=== PATIENT | female | born 1950 | race African-American/Black ===

== ENCOUNTER 2019-06-07 12:57 | Inpatient (IN) | payer MEDICARE, OTHER ==
[~2019-06-07] VITALS: Ht 170.2 cm; Wt 79.9 kg
[2019-06-07] MEDS ORDERED: IPRATROPIUM BROMIDE 0.5 MG/2.5 ML NEB SOLUTION NEB ONE (13:30)
[2019-06-07] MEDS ORDERED: ALBUTEROL SULFATE 5 MG/ML 20 ML NEB SOLN [BULK] NEB ONE (13:30)
[2019-06-07] MEDS ORDERED: 0.9% SODIUM CHLORIDE 10 ML SYRINGE IVP PRN ×2 (13:30→17:00)
[2019-06-07] MEDS ORDERED: MethylPREDNISolone SOD SUCC 125 MG/2 ML VIAL IVP ONE (13:30)
[2019-06-07] MEDS ORDERED: 0.9% SODIUM CHLORIDE 5 ML NEB SOLUTION NEB ONE (13:44)
[2019-06-07 13:50] LABS: HEMATOCRIT 43.5 % (36-46); HEMOGLOBIN 14.8 g/dL (12.0-16.0); MEAN CORPUSCULAR HEMOGLOBIN 33.5 pg (26.0-34.0); MEAN CORPUSCULAR VOLUME 99 fL (80-100); PLATELET COUNT (AUTO) 192 K/uL (150-450); RED BLOOD CELL COUNT(AUTO) 4.41 MIL/uL (4.00-5.20); RED CELL DISTRIBUTION WIDTH 13.2 % (11.5-14.5)
[2019-06-07 13:55] LABS: ABG A-A DIFF O2 618.1 mmHg (10-20.0); ABG BASE EXCESS -11.2 mmol/L (-2.0-3.0); ABG CARBOXYHEMOGLOBIN 1.6 % (0.0-1.5); ABG HCO3 16.4 mmol/L (22.0-26.0); ABG METHEMOGLOBIN 0.1 % (0.0-1.5); ABG OXYGEN SATURATION 88.6 % (95.0-98.0); ABG OXYHEMOGLOBIN 87.1 % (94.0-100.0); ABG PCO2 34 mmHg (35-45); ABG TOTAL HEMOGLOBIN 14.7 G/dL (12.0-18.0); SITE, BLOOD GAS LFT RADIAL; SOURCE, BLOOD GAS ARTERIAL; TEMPERATURE, FAHRENHEIT, BG 98.6 FAHREN (96.0-98.6)
[2019-06-07 13:56] LABS: O2 DEVICE,BLOOD GAS NON REBREATHER (ROOM AIR)
[2019-06-07 14:13] LABS: INFLUENZA TYPE A NEGATIVE FOR TYPE A (NEGATIVE); INFLUENZA TYPE B NEGATIVE FOR TYPE B (NEGATIVE)
[2019-06-07 14:20] LABS: D-DIMER 4.91 mg/L FEU (0.00-0.50); PROTHROMBIN TIME 10.4 SEC (9.4-11.6)
[2019-06-07] MEDS ORDERED: SODIUM CHLORIDE 0.9% 2,050 ML IV ONE (14:22)
[2019-06-07 14:23] LABS: ALANINE AMINOTRANSFERASE 25 U/L (12-78); ALBUMIN 2.2 g/dL (3.4-5.0); ALKALINE PHOSPHATASE 77 U/L (46-116); ANION GAP 22 mmol/L (8-16); ASPARTATE AMINOTRANSFERASE 93 U/L (15-37); BILIRUBIN,TOTAL 1.5 mg/dL (0.1-1.0); CARBON DIOXIDE 15 mmol/L (22-29); CHLORIDE 92 mmol/L (98-107); CREATINE KINASE, TOTAL ONLY 17 U/L (26-192); CREATININE 1.39 mg/dL (0.60-1.30); FREE T4 (FREE THYROXINE) 1.17 ng/dL (0.76-1.46); GLOMERULAR FILTR. RATE CALC 45 mL/min (>60); GLUCOSE,RANDOM 75 mg/dL (70-110); HCG,QUANTITATIVE 1 mIU/mL (0-6); SODIUM SERUM 129 mmol/L (136-145); THYROID STIMULATING HORMONE 0.36 uIU/mL (0.36-3.74); TOTAL PROTEIN, SERUM 7.2 g/dL (6.4-8.2); UREA NITROGEN, BLOOD 41 mg/dL (7-18)
[2019-06-07 14:25] LABS: BAND NEUTROPHILS % (MANUAL) 45 % (0-5); BASOPHILS % (MANUAL) 1 % (0-2); LYMPHOCYTES % (MANUAL) 26 % (22-44); MONOCYTES % (MANUAL) 4 % (2-9); SEGMENTED NEUTROPHILS % 24 % (40-70)
[2019-06-07 14:27] LABS: POTASSIUM 2.9 mmol/L (3.5-5.1)
[2019-06-07 14:29] LABS: CALCIUM, TOTAL 9.9 mg/dL (8.8-10.5)
[2019-06-07] MEDS ORDERED: POTASSIUM CHLORIDE 20 MEQ ER TABLET PO PRN (14:30)
[2019-06-07 14:39] LABS: B-TYPE NATRIURETIC PEPTIDE 2250 pg/mL (0-100)
[2019-06-07] MEDS: POTASSIUM CHL 10 MEQ/WATER 50 ML IV PRN ×3 (14:47→21:00)
[2019-06-07] MEDS ORDERED: VANCOMYCIN HCL 1 GM/D5% WATER 200 ML IV ONE (15:00)
[2019-06-07] MEDS ORDERED: SODIUM CHLORIDE 0.9% 100 ML ONE (15:12)
[2019-06-07] MEDS ORDERED: IOVERSOL 350 MG/ML 100 ML VIAL ONE (15:13)
[2019-06-07] MEDS ORDERED: MAGNESIUM SULFATE 2 GM/WATER 50 ML IV ONE (15:15)
[2019-06-07] MEDS ORDERED: PIPERACILLIN/TAZO 3.375 GM/D5W 50 ML IV ONE (16:00)
[2019-06-07] MEDS ORDERED: ETOMIDATE 2 MG/ML 10 ML VIAL IV ONE (16:28)
[2019-06-07] MEDS ORDERED: DOXYCYCLINE HYCLATE 100 MG in DEXTROSE 5%-WATER 100 ML IV ONE (16:45)
[2019-06-07] MEDS ORDERED: ONDANSETRON HCL 4 MG/2 ML VIAL IVP PRN ×2 (17:00→20:30)
[2019-06-07] MEDS ORDERED: ACETAMINOPHEN 325 MG TABLET PO PRN (17:00)
[2019-06-07] MEDS ORDERED: BISACODYL 10 MG RECTAL RECTAL SUPPOSITORY PR PRN (20:30)
[2019-06-07] MEDS ORDERED: MAGNESIUM HYDROXIDE SUSPENSION 30 ML UDCUP PO PRN (20:30)
[2019-06-07] MEDS ORDERED: HYDROCODONE/ACETAMINOPHEN 5-325 MG TABLET PO PRN (20:30)
[2019-06-07] MEDS: BENZONATATE 100 MG CAPSULE PO SCH (20:59)
[2019-06-07] MEDS: GuaiFENesin SR 600 MG ER TABLET PO SCH (21:00)
[2019-06-07] MEDS: DOCUSATE SODIUM 100 MG CAPSULE PO SCH (21:00)
[2019-06-07] MEDS: ZOLPIDEM TARTRATE 5 MG TABLET PO PRN (21:00)
[2019-06-07 22:50] VITALS: BP 121/63
[2019-06-07] MEDS: MORPHINE SULFATE 2 MG/ML SYRINGE IVP PRN (22:50)
[2019-06-07 23:12] LABS: ABG A-A DIFF O2 582.6 mmHg (10-20.0); ABG BASE EXCESS -10.1 mmol/L (-2.0-3.0); ABG CARBOXYHEMOGLOBIN 0.6 % (0.0-1.5); ABG HCO3 16.4 mmol/L (22.0-26.0); ABG METHEMOGLOBIN 0.3 % (0.0-1.5); ABG OXYGEN CONTENT 18.9 mL/dL (15.0-23.0); ABG OXYGEN SATURATION 91.8 % (95.0-98.0); ABG PCO2 51 mmHg (35-45); ABG TOTAL HEMOGLOBIN 14.8 G/dL (12.0-18.0); PO2, ARTERIAL BG 77.1 mmHg (75.0-83.0); SOURCE, BLOOD GAS ARTERIAL; TEMPERATURE, FAHRENHEIT, BG 100.4 FAHREN (96.0-98.6)
[2019-06-07 23:13] LABS: ABG PH 7.177 (7.35-7.450); O2 DEVICE,BLOOD GAS BIPAP (ROOM AIR); SITE, BLOOD GAS LFT RADIAL; SPONTANEOUS VT, BG 614 ml
[2019-06-07] MEDS ORDERED: PHENYLEPHRINE 200 MG/D5%-WATER 250 ML IV PRN (23:18)
[2019-06-07] MEDS ORDERED: RAPID SEQUENCE KIT [RSI] 1 EACH KIT ONE (23:20)
[2019-06-07 23:36] LABS: CALCIUM, TOTAL 9.6 mg/dL (8.8-10.5); CREATININE 1.5 mg/dL (0.60-1.30); POTASSIUM 3.9 mmol/L (3.5-5.1)
[2019-06-07 23:40] VITALS: BP 149/71
[2019-06-08] VITALS (8 sets, daily range): BP systolic 83–135; BP diastolic 44–79
[2019-06-08] MEDS ORDERED: PIPERACILLIN SODIUM/TAZOBACTAM 2.25 GM in DEXTROSE 5%-WATER 50 ML IV ONE ×2
[2019-06-08] MEDS ORDERED: SODIUM CHLORIDE 0.9% 250 ML IV ONE
[2019-06-08] MEDS: PIPERACILLIN SODIUM/TAZOBACTAM 2.25 GM in DEXTROSE 5%-WATER 50 ML IV SCH ×5 (00:08→23:48)
[2019-06-08] MEDS: PROPOFOL 1000 MG/ISO-OSM 100 ML IV PRN ×5 (00:09→16:48)
[2019-06-08 00:18] LABS: ABG A-A DIFF O2 595.6 mmHg (10-20.0); ABG BASE EXCESS -10.1 mmol/L (-2.0-3.0); ABG CARBOXYHEMOGLOBIN 1.3 % (0.0-1.5); ABG HCO3 15.9 mmol/L (22.0-26.0); ABG METHEMOGLOBIN 0.3 % (0.0-1.5); ABG OXYGEN CONTENT 16.7 mL/dL (15.0-23.0); ABG PCO2 58 mmHg (35-45); ABG TOTAL HEMOGLOBIN 14.9 G/dL (12.0-18.0); PO2, ARTERIAL BG 57.3 mmHg (75.0-83.0); SOURCE, BLOOD GAS ARTERIAL; TEMPERATURE, FAHRENHEIT, BG 100.4 FAHREN (96.0-98.6)
[2019-06-08 00:19] LABS: ABG OXYGEN SATURATION 81.3 % (95.0-98.0); ABG PH 7.137 (7.35-7.450); O2 DEVICE,BLOOD GAS VENTILATOR (ROOM AIR); SITE, BLOOD GAS LFT RADIAL; VT, ABG 450 ml
[2019-06-08 00:20] LABS: PEEP,BG 10 cm H2O; SPONTANEOUS VT, BG 436 ml
[2019-06-08] MEDS ORDERED: FUROSEMIDE 40 MG/4 ML VIAL IVP ONE (00:30)
[2019-06-08] MEDS ORDERED: SODIUM BICARBONATE [ADULT] 8.4% 50 MEQ/50 ML SYRINGE IVP ONE ×2 (00:30→13:30)
[2019-06-08] MEDS: ACETAMINOPHEN 325 MG TABLET PO PRN ×5 (00:37→21:16)
[2019-06-08] MEDS: MethylPREDNISolone SOD SUCC 125 MG/2 ML VIAL IVP SCH ×5 (01:02→23:48)
[2019-06-08] MEDS: HEPARIN SODIUM,PORCINE 5,000 UNITS/ML VIAL SQ SCH ×4 (01:02→23:47)
[2019-06-08 01:29] LABS: ABG A-A DIFF O2 573.9 mmHg (10-20.0); ABG BASE EXCESS -3.7 mmol/L (-2.0-3.0); ABG CARBOXYHEMOGLOBIN 0.8 % (0.0-1.5); ABG HCO3 20.5 mmol/L (22.0-26.0); ABG METHEMOGLOBIN 0.3 % (0.0-1.5); ABG OXYGEN CONTENT 17.2 mL/dL (15.0-23.0); ABG OXYGEN SATURATION 88.9 % (95.0-98.0); ABG OXYHEMOGLOBIN 87.9 % (94.0-100.0); ABG PCO2 64 mmHg (35-45); ABG TOTAL HEMOGLOBIN 13.9 G/dL (12.0-18.0); PO2, ARTERIAL BG 69.8 mmHg (75.0-83.0); SOURCE, BLOOD GAS ARTERIAL
[2019-06-08 01:30] LABS: O2 DEVICE,BLOOD GAS VENTILATOR (ROOM AIR); PEEP,BG 14 cm H2O; SITE, BLOOD GAS LFT RADIAL; VT, ABG 450 ml
[2019-06-08] MEDS: NOREPINEPHRINE 4 MG/D5%-WATER 250 ML IV PRN ×3 (01:30→22:04)
[2019-06-08 01:31] LABS: SPONTANEOUS VT, BG 426 ml
[2019-06-08] MEDS: VASOPRESSIN 40 UNITS in DEXTROSE 5%-WATER 98 ML IV PRN ×2 (02:21→15:16)
[2019-06-08] MEDS: IPRATROPIUM BROMIDE 0.5 MG/2.5 ML NEB SOLUTION NEB SCH ×4 (02:23→19:56)
[2019-06-08] MEDS: ALBUTEROL SULFATE 2.5 MG/0.5 ML NEB SOLUTION NEB SCH ×4 (02:23→19:56)
[2019-06-08 04:44] LABS: APPEARANCE,URINE CLOUDY (CLEAR); BILIRUBIN,URINE NEGATIVE (NEGATIVE); GLUCOSE, URINE (UA) NEGATIVE (NEGATIVE); KETONES,URINE NEGATIVE (NEGATIVE); LEUKOCYTE ESTERASE ,URINE NEGATIVE (NEGATIVE); NITRATE,URINE NEGATIVE (NEGATIVE); OCCULT BLOOD,URINE TRACE (NEGATIVE); PROTEIN,URINE POS 1+ (NEGATIVE)
[2019-06-08 04:53] LABS: BACTERIA,URINE Few /HPF (None Seen); COARSE GRANULAR CASTS,URINE 0-2 /LPF (None Seen); RBC,URINE 0-2 /HPF (0-2); SQUAMOUS EPITHELIAL CELL,UR Rare /LPF (None Seen)
[2019-06-08] MEDS ORDERED: VANCOMYCIN HCL 1.25 GM in DEXTROSE 5%-WATER 250 ML IV SCH (08:00)
[2019-06-08] MEDS: VANCOMYCIN HCL 1 GM/D5% WATER 200 ML IV SCH (08:14)
[2019-06-08 08:41] LABS: CALCIUM, TOTAL 8.9 mg/dL (8.8-10.5); CREATININE 1.87 mg/dL (0.60-1.30)
[2019-06-08 08:52] LABS: LACTIC ACID 5.1 mmol/L (0.4-2.0)
[2019-06-08] MEDS: BENZONATATE 100 MG CAPSULE PO SCH ×3 (09:00→21:16)
[2019-06-08] MEDS: MORPHINE SULFATE 2 MG/ML SYRINGE IVP PRN (09:00)
[2019-06-08] MEDS: GuaiFENesin SR 600 MG ER TABLET PO SCH ×2 (09:00→21:16)
[2019-06-08] MEDS: PANTOPRAZOLE SODIUM 40 MG DR TABLET PO SCH (09:00)
[2019-06-08] MEDS: DOCUSATE SODIUM 100 MG CAPSULE PO SCH ×2 (09:00→21:16)
[2019-06-08 09:09] LABS: HEMATOCRIT 43.2 % (36-46); HEMOGLOBIN 14.6 g/dL (12.0-16.0); MEAN CORPUSCULAR HEMOGLOBIN 33.6 pg (26.0-34.0); MEAN CORPUSCULAR HGB CONC 33.8 G/dL (31.0-37.0); MEAN CORPUSCULAR VOLUME 99 fL (80-100); PLATELET COUNT (AUTO) 120 K/uL (150-450); RED BLOOD CELL COUNT(AUTO) 4.34 MIL/uL (4.00-5.20); RED CELL DISTRIBUTION WIDTH 13.3 % (11.5-14.5)
[2019-06-08 09:17] LABS: BAND NEUTROPHILS % (MANUAL) 50 % (0-5); LYMPHOCYTES % (MANUAL) 5 % (22-44); METAMYELOCYTES % 2 % (0-0); MONOCYTES % (MANUAL) 1 % (2-9); REACTIVE LYMPHOCYTES 2 % (0-0); SEGMENTED NEUTROPHILS % 40 % (40-70)
[2019-06-08] MEDS ORDERED: SODIUM CHLORIDE 0.9% 500 ML IV ONE (09:29)
[2019-06-08 11:00] LABS: ABG A-A DIFF O2 551.2 mmHg (10-20.0); ABG CARBOXYHEMOGLOBIN 0.5 % (0.0-1.5); ABG HCO3 18.8 mmol/L (22.0-26.0); ABG METHEMOGLOBIN 0.3 % (0.0-1.5); ABG OXYGEN CONTENT 19.4 mL/dL (15.0-23.0); ABG OXYGEN SATURATION 97.4 % (95.0-98.0); ABG OXYHEMOGLOBIN 96.6 % (94.0-100.0); ABG PCO2 50 mmHg (35-45); ABG PH 7.232 (7.35-7.450); ABG TOTAL HEMOGLOBIN 14.2 G/dL (12.0-18.0); O2 DEVICE,BLOOD GAS VENTILATOR (ROOM AIR); PO2, ARTERIAL BG 109.2 mmHg (75.0-83.0); SITE, BLOOD GAS ARTERIAL LINE; SOURCE, BLOOD GAS ARTERIAL; TEMPERATURE, FAHRENHEIT, BG 100.4 FAHREN (96.0-98.6); VT, ABG 450 ml
[2019-06-08 11:03] LABS: PEEP,BG 14 cm H2O
[2019-06-08] MEDS ORDERED: SODIUM CHLORIDE 0.9% 1,000 ML ONE ×2 (12:25→15:46)
[2019-06-08 21:12] LABS: PROTEIN,URINE RANDOM 132 mg/dL (0-11.9); SODIUM,URINE RANDOM 22 mmol/l (20-110)
[2019-06-09] VITALS (9 sets, daily range): BP systolic 94–129; BP diastolic 54–80
[2019-06-09] MEDS: ALBUTEROL SULFATE 2.5 MG/0.5 ML NEB SOLUTION NEB SCH ×4 (01:38→19:53)
[2019-06-09] MEDS: IPRATROPIUM BROMIDE 0.5 MG/2.5 ML NEB SOLUTION NEB SCH ×4 (01:38→19:53)
[2019-06-09] MEDS: PROPOFOL 1000 MG/ISO-OSM 100 ML IV PRN ×3 (02:48→21:42)
[2019-06-09] MEDS: PIPERACILLIN SODIUM/TAZOBACTAM 2.25 GM in DEXTROSE 5%-WATER 50 ML IV SCH ×4 (05:04→23:08)
[2019-06-09] MEDS: MethylPREDNISolone SOD SUCC 125 MG/2 ML VIAL IVP SCH ×4 (05:05→23:08)
[2019-06-09 05:15] LABS: HEMATOCRIT 36.8 % (36-46); HEMOGLOBIN 12.3 g/dL (12.0-16.0); MEAN CORPUSCULAR HGB CONC 33.6 G/dL (31.0-37.0); MEAN CORPUSCULAR VOLUME 99 fL (80-100); PLATELET COUNT (AUTO) 60 K/uL (150-450); RED BLOOD CELL COUNT(AUTO) 3.74 MIL/uL (4.00-5.20); RED CELL DISTRIBUTION WIDTH 13.3 % (11.5-14.5)
[2019-06-09 05:21] LABS: CALCIUM, TOTAL 7.7 mg/dL (8.8-10.5); CREATININE 1.64 mg/dL (0.60-1.30); POTASSIUM 3.4 mmol/L (3.5-5.1)
[2019-06-09 06:55] LABS: BAND NEUTROPHILS % (MANUAL) 19 % (0-5); LYMPHOCYTES % (MANUAL) 3 % (22-44); METAMYELOCYTES % 1 % (0-0); MONOCYTES % (MANUAL) 5 % (2-9); SEGMENTED NEUTROPHILS % 72 % (40-70)
[2019-06-09 06:56] LABS: WBC MORPHOLOGY TOXIC GRAN
[2019-06-09] MEDS: HEPARIN SODIUM,PORCINE 5,000 UNITS/ML VIAL SQ SCH ×3 (08:00→23:06)
[2019-06-09] MEDS: VANCOMYCIN HCL 1 GM/D5% WATER 200 ML IV SCH (08:24)
[2019-06-09] MEDS ORDERED: POTASSIUM CHLORIDE 10% 40 MEQ/30 ML LIQUID UDCUP NG ONE (08:45)
[2019-06-09] MEDS: PANTOPRAZOLE SODIUM 40 MG DR TABLET PO SCH (09:00)
[2019-06-09] MEDS: DOCUSATE SODIUM 100 MG CAPSULE PO SCH ×2 (09:00→20:41)
[2019-06-09] MEDS: GuaiFENesin SR 600 MG ER TABLET PO SCH ×2 (09:00→20:41)
[2019-06-09] MEDS: BENZONATATE 100 MG CAPSULE PO SCH ×3 (09:00→20:41)
[2019-06-09] MEDS: VASOPRESSIN 40 UNITS in DEXTROSE 5%-WATER 98 ML IV PRN (09:24)
[2019-06-09 09:50] LABS: ABG A-A DIFF O2 554.1 mmHg (10-20.0); ABG BASE EXCESS -5.4 mmol/L (-2.0-3.0); ABG CARBOXYHEMOGLOBIN 0.4 % (0.0-1.5); ABG HCO3 20.1 mmol/L (22.0-26.0); ABG METHEMOGLOBIN 0.3 % (0.0-1.5); ABG OXYGEN CONTENT 16.7 mL/dL (15.0-23.0); ABG OXYGEN SATURATION 97.5 % (95.0-98.0); ABG OXYHEMOGLOBIN 96.8 % (94.0-100.0); ABG PCO2 47 mmHg (35-45); ABG PH 7.277 (7.35-7.450); ABG TOTAL HEMOGLOBIN 12.2 G/dL (12.0-18.0); PO2, ARTERIAL BG 109.2 mmHg (75.0-83.0); SOURCE, BLOOD GAS ARTERIAL; TEMPERATURE, FAHRENHEIT, BG 100.4 FAHREN (96.0-98.6)
[2019-06-09 09:52] LABS: O2 DEVICE,BLOOD GAS VENTILATOR (ROOM AIR); PEEP,BG 14 cm H2O; SITE, BLOOD GAS LFT BRACHIAL; VT, ABG 450 ml
[2019-06-09] MEDS: ACETAMINOPHEN 325 MG TABLET PO PRN (12:05)
[2019-06-09] MEDS ORDERED: SODIUM CHLORIDE 0.9% 1,000 ML ONE (18:00)
[2019-06-09] MEDS: FentaNYL CITRATE PF 500 MCG in DEXTROSE 5%-WATER 90 ML IV PRN (20:59)
[2019-06-10] VITALS: BP 107/60
[2019-06-10] MEDS ORDERED: SODIUM CHLORIDE 0.9% 250 ML IV ONE (00:17)
[2019-06-10] MEDS: PROPOFOL 1000 MG/ISO-OSM 100 ML IV PRN ×3 (00:30→08:37)
[2019-06-10] MEDS: IPRATROPIUM BROMIDE 0.5 MG/2.5 ML NEB SOLUTION NEB SCH ×4 (01:48→20:13)
[2019-06-10] MEDS: ALBUTEROL SULFATE 2.5 MG/0.5 ML NEB SOLUTION NEB SCH ×4 (01:48→20:12)
[2019-06-10] MEDS: FentaNYL CITRATE PF 500 MCG in DEXTROSE 5%-WATER 90 ML IV PRN ×2 (02:34→18:20)
[2019-06-10 04:00] VITALS: BP 104/62
[2019-06-10] MEDS: NOREPINEPHRINE 4 MG/D5%-WATER 250 ML IV PRN (04:02)
[2019-06-10 04:54] LABS: HEMATOCRIT 33.3 % (36-46); HEMOGLOBIN 11.4 g/dL (12.0-16.0); MEAN CORPUSCULAR HGB CONC 34.3 G/dL (31.0-37.0); MEAN CORPUSCULAR VOLUME 96 fL (80-100); PLATELET COUNT (AUTO) 41 K/uL (150-450); RED BLOOD CELL COUNT(AUTO) 3.46 MIL/uL (4.00-5.20); RED CELL DISTRIBUTION WIDTH 13.2 % (11.5-14.5)
[2019-06-10] MEDS: MethylPREDNISolone SOD SUCC 125 MG/2 ML VIAL IVP SCH ×4 (05:12→23:40)
[2019-06-10] MEDS: PIPERACILLIN SODIUM/TAZOBACTAM 2.25 GM in DEXTROSE 5%-WATER 50 ML IV SCH ×2 (05:12→11:24)
[2019-06-10 05:35] LABS: CALCIUM, TOTAL 7.4 mg/dL (8.8-10.5); CREATININE 1.72 mg/dL (0.60-1.30); POTASSIUM 4.2 mmol/L (3.5-5.1); VANCOMYCIN,RANDOM 20.6 mcg/mL (25.0-50.0)
[2019-06-10 08:00] VITALS: BP 89/53
[2019-06-10] MEDS: HEPARIN SODIUM,PORCINE 5,000 UNITS/ML VIAL SQ SCH ×2 (08:00→16:00)
[2019-06-10] MEDS: DOCUSATE SODIUM 100 MG CAPSULE PO SCH ×2 (08:36→20:15)
[2019-06-10] MEDS: PANTOPRAZOLE SODIUM 40 MG DR TABLET PO SCH (08:38)
[2019-06-10] MEDS: GuaiFENesin SR 600 MG ER TABLET PO SCH ×2 (08:38→20:15)
[2019-06-10] MEDS: BENZONATATE 100 MG CAPSULE PO SCH ×3 (08:38→20:15)
[2019-06-10] MEDS ORDERED: VANCOMYCIN HCL 750 MG in DEXTROSE 5%-WATER 250 ML IV ONE (09:00)
[2019-06-10 09:05] LABS: BAND NEUTROPHILS % (MANUAL) 18 % (0-5); LYMPHOCYTES % (MANUAL) 5 % (22-44); MONOCYTES % (MANUAL) 3 % (2-9); SEGMENTED NEUTROPHILS % 74 % (40-70)
[2019-06-10 09:14] LABS: ABG A-A DIFF O2 233.9 mmHg (10-20.0); ABG BASE EXCESS -4.7 mmol/L (-2.0-3.0); ABG CARBOXYHEMOGLOBIN 0.7 % (0.0-1.5); ABG HCO3 20.5 mmol/L (22.0-26.0); ABG METHEMOGLOBIN 0.3 % (0.0-1.5); ABG OXYGEN CONTENT 16.6 mL/dL (15.0-23.0); ABG OXYGEN SATURATION 92.7 % (95.0-98.0); ABG OXYHEMOGLOBIN 91.8 % (94.0-100.0); ABG PCO2 47 mmHg (35-45); ABG PH 7.289 (7.35-7.450); ABG TOTAL HEMOGLOBIN 12.8 G/dL (12.0-18.0); PO2, ARTERIAL BG 70.1 mmHg (75.0-83.0); SOURCE, BLOOD GAS ARTERIAL; TEMPERATURE, FAHRENHEIT, BG 98.6 FAHREN (96.0-98.6)
[2019-06-10 09:15] LABS: O2 DEVICE,BLOOD GAS VENTILATOR (ROOM AIR); SITE, BLOOD GAS RT RADIAL; VT, ABG 450 ml
[2019-06-10 09:16] LABS: PEEP,BG 10 cm H2O
[2019-06-10 12:00] VITALS: BP 111/71
[2019-06-10 13:16] LABS: PHOSPHORUS 4.8 mg/dL (2.5-4.9)
[2019-06-10 13:27] LABS: MAGNESIUM 4.3 mg/dL (1.80-2.40)
[2019-06-10] MEDS: SODIUM CHLORIDE 0.9% 1,000 ML IV SCH (14:07)
[2019-06-10 16:00] VITALS: BP 115/70
[2019-06-10 16:11] LABS: ALBUMIN 1.3 g/dL (3.4-5.0); BILIRUBIN,DIRECT 0.5 mg/dL (0.00-0.20); BILIRUBIN,TOTAL 0.9 mg/dL (0.1-1.0); TOTAL PROTEIN, SERUM 5.5 g/dL (6.4-8.2)
[2019-06-10 16:33] LABS: INR 0.9 (0.9-1.1); PROTHROMBIN TIME 9.5 SEC (9.4-11.6)
[2019-06-10 17:23] LABS: D-DIMER > 35.20 mg/L FEU (0.00-0.50); FIBRINOGEN 684 mg/dL (200-400)
[2019-06-10] MEDS: CefTRIAXone SODIUM 2 GM in DEXTROSE 5%-WATER 50 ML IV SCH (18:01)
[2019-06-10 20:00] VITALS: BP 98/59
[2019-06-10] MEDS: AZITHROMYCIN 500 MG/NS 250 ML IV SCH (22:56)
[2019-06-11] VITALS: BP 96/63
[2019-06-11] MEDS: PROPOFOL 1000 MG/ISO-OSM 100 ML IV PRN ×3 (00:38→17:13)
[2019-06-11] MEDS: ALBUTEROL SULFATE 2.5 MG/0.5 ML NEB SOLUTION NEB SCH ×4 (01:55→20:03)
[2019-06-11] MEDS: IPRATROPIUM BROMIDE 0.5 MG/2.5 ML NEB SOLUTION NEB SCH ×4 (01:55→20:03)
[2019-06-11] MEDS: CefTRIAXone SODIUM 2 GM in DEXTROSE 5%-WATER 50 ML IV SCH ×2 (04:21→17:11)
[2019-06-11] MEDS: NOREPINEPHRINE 4 MG/D5%-WATER 250 ML IV PRN (04:47)
[2019-06-11 05:07] LABS: HEMATOCRIT 34.1 % (36-46); HEMOGLOBIN 11.6 g/dL (12.0-16.0); MEAN CORPUSCULAR HEMOGLOBIN 32.9 pg (26.0-34.0); MEAN CORPUSCULAR HGB CONC 34.1 G/dL (31.0-37.0); MEAN CORPUSCULAR VOLUME 97 fL (80-100); PLATELET COUNT (AUTO) 58 K/uL (150-450); RED BLOOD CELL COUNT(AUTO) 3.53 MIL/uL (4.00-5.20); RED CELL DISTRIBUTION WIDTH 13.3 % (11.5-14.5)
[2019-06-11 05:24] LABS: ALBUMIN 1.2 g/dL (3.4-5.0); BILIRUBIN,TOTAL 0.6 mg/dL (0.1-1.0); C-REACTIVE PROTEIN QUANT 12.63 mg/dL (0.00-0.30); CALCIUM, TOTAL 7.7 mg/dL (8.8-10.5); CREATININE 2.04 mg/dL (0.60-1.30); POTASSIUM 4.7 mmol/L (3.5-5.1); TOTAL PROTEIN, SERUM 5.3 g/dL (6.4-8.2)
[2019-06-11 05:47] LABS: PLATELET MORPHOLOGY COMMENT GIANT PLTS PRESENT
[2019-06-11 05:49] LABS: BAND NEUTROPHILS % (MANUAL) 9 % (0-5); LYMPHOCYTES % (MANUAL) 4 % (22-44); MONOCYTES % (MANUAL) 2 % (2-9); SEGMENTED NEUTROPHILS % 85 % (40-70)
[2019-06-11] MEDS: MethylPREDNISolone SOD SUCC 125 MG/2 ML VIAL IVP SCH ×4 (05:56→23:23)
[2019-06-11 06:12] LABS: ERYTHROCYTE SEDIMENTATION RATE 104 MM/HR (0-20)
[2019-06-11] MEDS: FentaNYL CITRATE PF 500 MCG in DEXTROSE 5%-WATER 90 ML IV PRN (06:47)
[2019-06-11 08:00] VITALS: BP 100/67
[2019-06-11] MEDS ORDERED: VANCOMYCIN HCL 750 MG in DEXTROSE 5%-WATER 250 ML IV SCH (08:00)
[2019-06-11] MEDS: DOCUSATE SODIUM 100 MG CAPSULE PO SCH ×2 (09:00→20:44)
[2019-06-11] MEDS: BENZONATATE 100 MG CAPSULE PO SCH ×3 (09:00→20:44)
[2019-06-11] MEDS: GuaiFENesin SR 600 MG ER TABLET PO SCH ×2 (09:00→20:44)
[2019-06-11] MEDS: SODIUM CHLORIDE 0.9% 1,000 ML IV SCH (09:15)
[2019-06-11] MEDS ORDERED: PANTOPRAZOLE SODIUM 40 MG/VIAL IVP SCH (09:15)
[2019-06-11] MEDS ORDERED: VANCOMYCIN HCL 1 GM/D5% WATER 200 ML IV PRN (09:30)
[2019-06-11 09:49] LABS: ABG A-A DIFF O2 211.1 mmHg (10-20.0); ABG BASE EXCESS -2.9 mmol/L (-2.0-3.0); ABG CARBOXYHEMOGLOBIN 0.3 % (0.0-1.5); ABG HCO3 22.1 mmol/L (22.0-26.0); ABG METHEMOGLOBIN 0.3 % (0.0-1.5); ABG OXYGEN CONTENT 15.8 mL/dL (15.0-23.0); ABG OXYGEN SATURATION 96.7 % (95.0-98.0); ABG OXYHEMOGLOBIN 96.1 % (94.0-100.0); ABG PCO2 44 mmHg (35-45); ABG PH 7.333 (7.35-7.450); ABG TOTAL HEMOGLOBIN 11.6 G/dL (12.0-18.0); PO2, ARTERIAL BG 95.6 mmHg (75.0-83.0); SOURCE, BLOOD GAS ARTERIAL; TEMPERATURE, FAHRENHEIT, BG 98.6 FAHREN (96.0-98.6)
[2019-06-11 09:53] LABS: SITE, BLOOD GAS LFT RADIAL
[2019-06-11 09:54] LABS: O2 DEVICE,BLOOD GAS VENTILATOR (ROOM AIR); PEEP,BG 10 cm H2O; VT, ABG 450 ml
[2019-06-11 12:00] VITALS: BP 99/59
[2019-06-11] MEDS ORDERED: CLINDAMYCIN 900 MG/D5% WATER 50 ML IV SCH (13:00)
[2019-06-11] MEDS: PANTOPRAZOLE SODIUM 80 MG in SODIUM CHLORIDE 0.9% 100 ML IV SCH ×2 (15:28→23:59)
[2019-06-11 16:00] VITALS: BP 89/56
[2019-06-11 20:00] VITALS: BP 114/67
[2019-06-11] MEDS: AZITHROMYCIN 500 MG/NS 250 ML IV SCH (23:23)
[2019-06-12] VITALS: BP 110/63
[2019-06-12] MEDS: IPRATROPIUM BROMIDE 0.5 MG/2.5 ML NEB SOLUTION NEB SCH ×4 (02:24→19:47)
[2019-06-12] MEDS: ALBUTEROL SULFATE 2.5 MG/0.5 ML NEB SOLUTION NEB SCH ×4 (02:24→19:47)
[2019-06-12] MEDS: PROPOFOL 1000 MG/ISO-OSM 100 ML IV PRN ×4 (02:33→23:40)
[2019-06-12 04:00] VITALS: BP 94/54
[2019-06-12] MEDS: CefTRIAXone SODIUM 2 GM in DEXTROSE 5%-WATER 50 ML IV SCH ×2 (04:50→17:20)
[2019-06-12] MEDS: SODIUM CHLORIDE 0.9% 1,000 ML IV SCH (05:57)
[2019-06-12 05:58] LABS: HEMATOCRIT 31.7 % (36-46); HEMOGLOBIN 10.5 g/dL (12.0-16.0); MEAN CORPUSCULAR HEMOGLOBIN 32.4 pg (26.0-34.0); MEAN CORPUSCULAR HGB CONC 33.2 G/dL (31.0-37.0); MEAN CORPUSCULAR VOLUME 98 fL (80-100); RED BLOOD CELL COUNT(AUTO) 3.25 MIL/uL (4.00-5.20); RED CELL DISTRIBUTION WIDTH 13.2 % (11.5-14.5)
[2019-06-12 06:01] LABS: CALCIUM, TOTAL 7.9 mg/dL (8.8-10.5); CREATININE 1.54 mg/dL (0.60-1.30); POTASSIUM 4.7 mmol/L (3.5-5.1)
[2019-06-12] MEDS: MethylPREDNISolone SOD SUCC 125 MG/2 ML VIAL IVP SCH ×4 (06:31→23:40)
[2019-06-12 06:57] LABS: PLATELET COUNT (AUTO) 83 K/uL (150-450)
[2019-06-12 07:00] LABS: BAND NEUTROPHILS % (MANUAL) 8 % (0-5); LYMPHOCYTES % (MANUAL) 5 % (22-44); MONOCYTES % (MANUAL) 2 % (2-9); SEGMENTED NEUTROPHILS % 85 % (40-70)
[2019-06-12 08:00] VITALS: BP 97/58
[2019-06-12] MEDS: GuaiFENesin SR 600 MG ER TABLET PO SCH ×2 (09:00→20:01)
[2019-06-12] MEDS: BENZONATATE 100 MG CAPSULE PO SCH ×3 (09:00→20:01)
[2019-06-12] MEDS: DOCUSATE SODIUM 100 MG CAPSULE PO SCH ×2 (09:00→20:01)
[2019-06-12] MEDS: FentaNYL CITRATE PF 500 MCG in DEXTROSE 5%-WATER 90 ML IV PRN ×2 (09:35→21:01)
[2019-06-12 10:09] LABS: ABG A-A DIFF O2 228.5 mmHg (10-20.0); ABG BASE EXCESS -1.4 mmol/L (-2.0-3.0); ABG CARBOXYHEMOGLOBIN 0.2 % (0.0-1.5); ABG HCO3 23.4 mmol/L (22.0-26.0); ABG METHEMOGLOBIN 0.3 % (0.0-1.5); ABG OXYGEN CONTENT 15.1 mL/dL (15.0-23.0); ABG OXYGEN SATURATION 95.9 % (95.0-98.0); ABG OXYHEMOGLOBIN 95.4 % (94.0-100.0); ABG PCO2 40 mmHg (35-45); ABG PH 7.389 (7.35-7.450); ABG TOTAL HEMOGLOBIN 11.2 G/dL (12.0-18.0); PO2, ARTERIAL BG 84.2 mmHg (75.0-83.0); SOURCE, BLOOD GAS ARTERIAL
[2019-06-12 10:13] LABS: O2 DEVICE,BLOOD GAS VENTILATOR (ROOM AIR); PEEP,BG 8 cm H2O; SITE, BLOOD GAS LFT RADIAL; SPONTANEOUS VT, BG 427 ml; VT, ABG 450 ml
[2019-06-12] MEDS: PANTOPRAZOLE SODIUM 80 MG in SODIUM CHLORIDE 0.9% 100 ML IV SCH ×2 (10:17→20:02)
[2019-06-12 12:00] VITALS: BP 98/56
[2019-06-12 16:00] VITALS: BP 112/56
[2019-06-12 20:00] VITALS: BP 127/71
[2019-06-12] MEDS: ACETAMINOPHEN 325 MG TABLET PO PRN (20:01)
[2019-06-12] MEDS: AZITHROMYCIN 500 MG/NS 250 ML IV SCH (23:41)
[2019-06-13] VITALS: BP 109/56
[2019-06-13] MEDS: SODIUM CHLORIDE 0.9% 1,000 ML IV SCH (02:01)
[2019-06-13] MEDS: IPRATROPIUM BROMIDE 0.5 MG/2.5 ML NEB SOLUTION NEB SCH ×4 (02:07→20:02)
[2019-06-13] MEDS: ALBUTEROL SULFATE 2.5 MG/0.5 ML NEB SOLUTION NEB SCH ×4 (02:07→20:02)
[2019-06-13 04:00] VITALS: BP 103/54
[2019-06-13 05:04] LABS: HEMATOCRIT 28.3 % (36-46); HEMOGLOBIN 9.6 g/dL (12.0-16.0); MEAN CORPUSCULAR VOLUME 97 fL (80-100); PLATELET COUNT (AUTO) 120 K/uL (150-450); RED BLOOD CELL COUNT(AUTO) 2.92 MIL/uL (4.00-5.20); RED CELL DISTRIBUTION WIDTH 13.1 % (11.5-14.5)
[2019-06-13 05:18] LABS: ALBUMIN 1.3 g/dL (3.4-5.0); BILIRUBIN,TOTAL 0.3 mg/dL (0.1-1.0); CALCIUM, TOTAL 7.9 mg/dL (8.8-10.5); CREATININE 1.11 mg/dL (0.60-1.30); PHOSPHORUS 3.4 mg/dL (2.5-4.9); POTASSIUM 4.8 mmol/L (3.5-5.1); TOTAL PROTEIN, SERUM 4.9 g/dL (6.4-8.2)
[2019-06-13] MEDS: MethylPREDNISolone SOD SUCC 125 MG/2 ML VIAL IVP SCH ×4 (05:41→23:29)
[2019-06-13] MEDS: CefTRIAXone SODIUM 2 GM in DEXTROSE 5%-WATER 50 ML IV SCH ×2 (05:41→16:25)
[2019-06-13] MEDS: PANTOPRAZOLE SODIUM 80 MG in SODIUM CHLORIDE 0.9% 100 ML IV SCH (05:44)
[2019-06-13] MEDS: PROPOFOL 1000 MG/ISO-OSM 100 ML IV PRN ×4 (06:49→22:55)
[2019-06-13 07:55] LABS: BAND NEUTROPHILS % (MANUAL) 10 % (0-5); CORRECTED WHITE BLOOD COUNT 23.6 K/uL (4.5-11.0); LYMPHOCYTES % (MANUAL) 5 % (22-44); MONOCYTES % (MANUAL) 1 % (2-9); REACTIVE LYMPHOCYTES 1 % (0-0); SEGMENTED NEUTROPHILS % 83 % (40-70)
[2019-06-13 08:00] VITALS: BP 109/59
[2019-06-13] MEDS: GuaiFENesin SR 600 MG ER TABLET PO SCH ×2 (08:17→20:32)
[2019-06-13] MEDS: BENZONATATE 100 MG CAPSULE PO SCH ×3 (08:17→20:32)
[2019-06-13] MEDS: DOCUSATE SODIUM 100 MG CAPSULE PO SCH ×2 (08:17→20:32)
[2019-06-13] MEDS ORDERED: DEXTROSE 50%-WATER 25 GM/50 ML SYRINGE IVP PRN (11:15)
[2019-06-13] MEDS ORDERED: DEXTROSE 5%-WATER 500 ML IV ONE (11:30)
[2019-06-13] MEDS: FentaNYL CITRATE PF 500 MCG in DEXTROSE 5%-WATER 90 ML IV PRN ×2 (11:47→20:25)
[2019-06-13 12:00] VITALS: BP 107/52
[2019-06-13 12:24] LABS: D-DIMER 32.42 mg/L FEU (0.00-0.50); PROTHROMBIN TIME 10.6 SEC (9.4-11.6)
[2019-06-13 14:15] LABS: GLUCOSE,POINT OF CARE 199 MG/DL (70-110)
[2019-06-13 16:00] VITALS: BP 108/52
[2019-06-13] MEDS ORDERED: SODIUM CHLORIDE 0.9% 250 ML IV ONE (16:29)
[2019-06-13] MEDS: INSULIN LISPRO 100 UNITS/ML SQ PRN ×2 (17:31→23:42)
[2019-06-13 17:54] LABS: GLUCOSE,POINT OF CARE 242 MG/DL (70-110)
[2019-06-13 20:00] VITALS: BP 101/59
[2019-06-13] MEDS: PANTOPRAZOLE SODIUM 40 MG/VIAL IVP SCH (20:32)
[2019-06-13 21:23] LABS: ADAMTS13 ACTIVITY See Separate Report.
[2019-06-13] MEDS: AZITHROMYCIN 500 MG/NS 250 ML IV SCH (22:18)
[2019-06-14] VITALS: BP 113/60
[2019-06-14] MEDS: IPRATROPIUM BROMIDE 0.5 MG/2.5 ML NEB SOLUTION NEB SCH ×4 (01:50→19:21)
[2019-06-14] MEDS: ALBUTEROL SULFATE 2.5 MG/0.5 ML NEB SOLUTION NEB SCH ×4 (01:51→19:21)
[2019-06-14] MEDS: PROPOFOL 1000 MG/ISO-OSM 100 ML IV PRN ×4 (03:05→22:24)
[2019-06-14 04:00] VITALS: BP 107/55
[2019-06-14] MEDS: CefTRIAXone SODIUM 2 GM in DEXTROSE 5%-WATER 50 ML IV SCH ×2 (04:23→17:24)
[2019-06-14] MEDS: INSULIN LISPRO 100 UNITS/ML SQ PRN ×3 (05:22→23:29)
[2019-06-14] MEDS: MethylPREDNISolone SOD SUCC 125 MG/2 ML VIAL IVP SCH ×4 (05:24→23:21)
[2019-06-14 05:44] LABS: HEMATOCRIT 27.9 % (36-46); HEMOGLOBIN 9.5 g/dL (12.0-16.0); MEAN CORPUSCULAR HEMOGLOBIN 33.6 pg (26.0-34.0); MEAN CORPUSCULAR VOLUME 99 fL (80-100); PLATELET COUNT (AUTO) 216 K/uL (150-450); RED BLOOD CELL COUNT(AUTO) 2.82 MIL/uL (4.00-5.20); RED CELL DISTRIBUTION WIDTH 13.2 % (11.5-14.5)
[2019-06-14 05:45] LABS: ANION GAP 4 mmol/L (8-16); CALCIUM, TOTAL 8.4 mg/dL (8.8-10.5); CARBON DIOXIDE 31 mmol/L (22-29); CHLORIDE 117 mmol/L (98-107); CREATININE 0.85 mg/dL (0.60-1.30); GLOMERULAR FILTR. RATE CALC > 60 mL/min (>60); GLUCOSE,RANDOM 236 mg/dL (70-110); POTASSIUM 4.9 mmol/L (3.5-5.1); SODIUM SERUM 152 mmol/L (136-145); UREA NITROGEN, BLOOD 42 mg/dL (7-18)
[2019-06-14] MEDS: FentaNYL CITRATE PF 500 MCG in DEXTROSE 5%-WATER 90 ML IV PRN ×2 (06:17→20:28)
[2019-06-14 06:19] LABS: BAND NEUTROPHILS % (MANUAL) 4 % (0-5); LYMPHOCYTES % (MANUAL) 5 % (22-44); METAMYELOCYTES % 2 % (0-0); MONOCYTES % (MANUAL) 2 % (2-9); SEGMENTED NEUTROPHILS % 87 % (40-70)
[2019-06-14 06:20] LABS: PLATELET MORPHOLOGY COMMENT LARGE PLTS PRESENT
[2019-06-14 06:54] LABS: GLUCOSE,POINT OF CARE 255 MG/DL (70-110)
[2019-06-14 06:54] LABS: GLUCOSE,POINT OF CARE 225 MG/DL (70-110)
[2019-06-14 08:00] VITALS: BP 106/62
[2019-06-14] MEDS: GuaiFENesin SR 600 MG ER TABLET PO SCH ×2 (08:49→20:42)
[2019-06-14] MEDS: PANTOPRAZOLE SODIUM 40 MG/VIAL IVP SCH ×2 (08:49→20:43)
[2019-06-14] MEDS: DOCUSATE SODIUM 100 MG CAPSULE PO SCH ×2 (08:50→20:42)
[2019-06-14] MEDS: BENZONATATE 100 MG CAPSULE PO SCH ×3 (08:50→20:42)
[2019-06-14 12:00] VITALS: BP 112/58
[2019-06-14 13:27] LABS: GLUCOSE,POINT OF CARE 178 MG/DL (70-110)
[2019-06-14 16:00] VITALS: BP 126/67
[2019-06-14 17:13] LABS: ABG A-A DIFF O2 185.8 mmHg (10-20.0); ABG BASE EXCESS 3.2 mmol/L (-2.0-3.0); ABG CARBOXYHEMOGLOBIN 0.2 % (0.0-1.5); ABG HCO3 27.3 mmol/L (22.0-26.0); ABG METHEMOGLOBIN 0.3 % (0.0-1.5); ABG OXYGEN CONTENT 13.5 mL/dL (15.0-23.0); ABG OXYGEN SATURATION 91.9 % (95.0-98.0); ABG OXYHEMOGLOBIN 91.4 % (94.0-100.0); ABG PCO2 34 mmHg (35-45); ABG PH 7.505 (7.35-7.450); ABG TOTAL HEMOGLOBIN 10.5 G/dL (12.0-18.0); PO2, ARTERIAL BG 60.7 mmHg (75.0-83.0); SOURCE, BLOOD GAS ARTERIAL; TEMPERATURE, FAHRENHEIT, BG 97.7 FAHREN (96.0-98.6)
[2019-06-14 17:14] LABS: O2 DEVICE,BLOOD GAS VENTILATOR (ROOM AIR); SITE, BLOOD GAS LFT RADIAL; VENT MODE, BG SPONTANEOUS (ROOM AIR)
[2019-06-14 17:16] LABS: PEEP,BG 5 cm H2O; SPONTANEOUS VT, BG 500 ml
[2019-06-14] MEDS: LISINOPRIL 5 MG TABLET PO SCH (17:25)
[2019-06-14] MEDS ORDERED: DEXTROSE 50%-WATER 25 GM/50 ML SYRINGE IVP PRN (19:30)
[2019-06-14 20:00] VITALS: BP 94/48
[2019-06-14] MEDS: CARVEDILOL 3.125 MG TABLET PO SCH (20:42)
[2019-06-14] MEDS: AZITHROMYCIN 500 MG/NS 250 ML IV SCH (22:21)
[2019-06-15] VITALS: BP 105/44
[2019-06-15] MEDS: ALBUTEROL SULFATE 2.5 MG/0.5 ML NEB SOLUTION NEB SCH ×4 (01:14→20:03)
[2019-06-15] MEDS: IPRATROPIUM BROMIDE 0.5 MG/2.5 ML NEB SOLUTION NEB SCH ×4 (01:14→20:03)
[2019-06-15] MEDS: PROPOFOL 1000 MG/ISO-OSM 100 ML IV PRN ×5 (02:19→21:45)
[2019-06-15 04:00] VITALS: BP 108/68
[2019-06-15] MEDS: CefTRIAXone SODIUM 2 GM in DEXTROSE 5%-WATER 50 ML IV SCH ×2 (04:19→17:16)
[2019-06-15] MEDS: MethylPREDNISolone SOD SUCC 125 MG/2 ML VIAL IVP SCH ×2 (05:38→10:57)
[2019-06-15 05:41] LABS: HEMOGLOBIN 9.6 g/dL (12.0-16.0); MEAN CORPUSCULAR HEMOGLOBIN 32.6 pg (26.0-34.0); MEAN CORPUSCULAR HGB CONC 32.9 G/dL (31.0-37.0); MEAN CORPUSCULAR VOLUME 99 fL (80-100); PLATELET COUNT (AUTO) 289 K/uL (150-450); RED BLOOD CELL COUNT(AUTO) 2.93 MIL/uL (4.00-5.20); RED CELL DISTRIBUTION WIDTH 13.3 % (11.5-14.5)
[2019-06-15 05:50] LABS: ANION GAP 4 mmol/L (8-16); CALCIUM, TOTAL 8.4 mg/dL (8.8-10.5); CARBON DIOXIDE 29 mmol/L (22-29); CHLORIDE 116 mmol/L (98-107); GLOMERULAR FILTR. RATE CALC > 60 mL/min (>60); GLUCOSE,RANDOM 179 mg/dL (70-110); POTASSIUM 4.9 mmol/L (3.5-5.1); SODIUM SERUM 149 mmol/L (136-145); UREA NITROGEN, BLOOD 36 mg/dL (7-18)
[2019-06-15] MEDS: INSULIN LISPRO 100 UNITS/ML SQ PRN ×3 (06:01→18:07)
[2019-06-15 06:09] LABS: GLUCOSE,POINT OF CARE 208 MG/DL (70-110)
[2019-06-15 06:10] LABS: GLUCOSE,POINT OF CARE 172 MG/DL (70-110)
[2019-06-15] MEDS: FentaNYL CITRATE PF 500 MCG in DEXTROSE 5%-WATER 90 ML IV PRN ×3 (06:43→23:42)
[2019-06-15] MEDS: DOCUSATE SODIUM 100 MG CAPSULE PO SCH ×2 (07:27→21:00)
[2019-06-15 07:35] LABS: BAND NEUTROPHILS % (MANUAL) 12 % (0-5); LYMPHOCYTES % (MANUAL) 3 % (22-44); MONOCYTES % (MANUAL) 4 % (2-9); SEGMENTED NEUTROPHILS % 81 % (40-70)
[2019-06-15 08:00] VITALS: BP 129/74
[2019-06-15] MEDS: PANTOPRAZOLE SODIUM 40 MG/VIAL IVP SCH ×2 (09:09→21:12)
[2019-06-15] MEDS: LISINOPRIL 5 MG TABLET PO SCH (09:10)
[2019-06-15] MEDS: GuaiFENesin SR 600 MG ER TABLET PO SCH ×2 (09:10→21:13)
[2019-06-15] MEDS: CARVEDILOL 3.125 MG TABLET PO SCH ×2 (09:10→21:00)
[2019-06-15] MEDS: BENZONATATE 100 MG CAPSULE PO SCH ×3 (09:10→21:13)
[2019-06-15 09:51] LABS: GLUCOSE,POINT OF CARE 160 MG/DL (70-110)
[2019-06-15] MEDS: DEXTROSE 5%-WATER 1,000 ML IV SCH (10:56)
[2019-06-15 12:00] VITALS: BP 113/59
[2019-06-15 16:00] VITALS: BP 97/54
[2019-06-15] MEDS: MethylPREDNISolone SOD SUCC 40 MG/ML VIAL IVP SCH ×2 (17:17→23:42)
[2019-06-15 20:00] VITALS: BP 102/53
[2019-06-15 21:57] LABS: GLUCOSE,POINT OF CARE 168 MG/DL (70-110)
[2019-06-15] MEDS ORDERED: SODIUM CHLORIDE 0.9% 250 ML IV ONE (23:39)
[2019-06-15] MEDS: AZITHROMYCIN 500 MG/NS 250 ML IV SCH (23:41)
[2019-06-16] VITALS: BP 86/45
[2019-06-16] MEDS: INSULIN LISPRO 100 UNITS/ML SQ PRN ×5 (00:09→23:30)
[2019-06-16] MEDS: NOREPINEPHRINE 4 MG/D5%-WATER 250 ML IV PRN (00:32)
[2019-06-16] MEDS: PROPOFOL 1000 MG/ISO-OSM 100 ML IV PRN ×4 (02:12→23:52)
[2019-06-16] MEDS: IPRATROPIUM BROMIDE 0.5 MG/2.5 ML NEB SOLUTION NEB SCH ×4 (02:41→20:07)
[2019-06-16] MEDS: ALBUTEROL SULFATE 2.5 MG/0.5 ML NEB SOLUTION NEB SCH ×4 (02:41→20:07)
[2019-06-16 04:00] VITALS: BP 119/63
[2019-06-16 04:30] LABS: GLUCOSE,POINT OF CARE 183 MG/DL (70-110)
[2019-06-16] MEDS: CefTRIAXone SODIUM 2 GM in DEXTROSE 5%-WATER 50 ML IV SCH ×2 (05:26→17:05)
[2019-06-16 05:31] LABS: HEMOGLOBIN 9.4 g/dL (12.0-16.0); MEAN CORPUSCULAR HEMOGLOBIN 32.1 pg (26.0-34.0); MEAN CORPUSCULAR HGB CONC 32.5 G/dL (31.0-37.0); MEAN CORPUSCULAR VOLUME 99 fL (80-100); PLATELET COUNT (AUTO) 354 K/uL (150-450); RED BLOOD CELL COUNT(AUTO) 2.94 MIL/uL (4.00-5.20); RED CELL DISTRIBUTION WIDTH 13.6 % (11.5-14.5)
[2019-06-16 05:42] LABS: ALANINE AMINOTRANSFERASE 79 U/L (12-78); ALBUMIN 1.6 g/dL (3.4-5.0); ALKALINE PHOSPHATASE 104 U/L (46-116); ANION GAP 6 mmol/L (8-16); ASPARTATE AMINOTRANSFERASE 60 U/L (15-37); BILIRUBIN,TOTAL 0.2 mg/dL (0.1-1.0); CARBON DIOXIDE 28 mmol/L (22-29); CHLORIDE 117 mmol/L (98-107); GLOMERULAR FILTR. RATE CALC > 60 mL/min (>60); GLUCOSE,RANDOM 173 mg/dL (70-110); POTASSIUM 4.5 mmol/L (3.5-5.1); SODIUM SERUM 151 mmol/L (136-145); TOTAL PROTEIN, SERUM 4.9 g/dL (6.4-8.2); UREA NITROGEN, BLOOD 30 mg/dL (7-18)
[2019-06-16] MEDS: MethylPREDNISolone SOD SUCC 40 MG/ML VIAL IVP SCH ×4 (05:49→23:10)
[2019-06-16] MEDS: FentaNYL CITRATE PF 500 MCG in DEXTROSE 5%-WATER 90 ML IV PRN ×4 (05:50→23:43)
[2019-06-16] MEDS: DEXTROSE 5%-WATER 1,000 ML IV SCH ×2 (05:50→17:05)
[2019-06-16 05:54] LABS: BAND NEUTROPHILS % (MANUAL) 5 % (0-5); LYMPHOCYTES % (MANUAL) 5 % (22-44); MONOCYTES % (MANUAL) 4 % (2-9); SEGMENTED NEUTROPHILS % 86 % (40-70)
[2019-06-16 06:05] LABS: PLATELET MORPHOLOGY COMMENT GIANT PLTS PRESENT
[2019-06-16 07:43] LABS: GLUCOSE,POINT OF CARE 165 MG/DL (70-110)
[2019-06-16 08:00] VITALS: BP 112/54
[2019-06-16 08:27] LABS: GLUCOSE,POINT OF CARE 185 MG/DL (70-110)
[2019-06-16] MEDS: CARVEDILOL 3.125 MG TABLET PO SCH ×2 (09:00→20:39)
[2019-06-16] MEDS: LISINOPRIL 5 MG TABLET PO SCH (09:00)
[2019-06-16] MEDS: DOCUSATE SODIUM 100 MG CAPSULE PO SCH ×2 (09:00→20:39)
[2019-06-16] MEDS: GuaiFENesin SR 600 MG ER TABLET PO SCH ×2 (09:40→20:39)
[2019-06-16] MEDS: PANTOPRAZOLE SODIUM 40 MG/VIAL IVP SCH ×2 (09:40→20:38)
[2019-06-16] MEDS: BENZONATATE 100 MG CAPSULE PO SCH ×3 (09:41→20:39)
[2019-06-16 10:43] LABS: ABG A-A DIFF O2 161.8 mmHg (10-20.0); ABG BASE EXCESS 2.5 mmol/L (-2.0-3.0); ABG CARBOXYHEMOGLOBIN 0.4 % (0.0-1.5); ABG HCO3 26.6 mmol/L (22.0-26.0); ABG METHEMOGLOBIN 0.3 % (0.0-1.5); ABG OXYGEN SATURATION 95.9 % (95.0-98.0); ABG OXYHEMOGLOBIN 95.2 % (94.0-100.0); ABG PCO2 38 mmHg (35-45); ABG PH 7.461 (7.35-7.450); ABG TOTAL HEMOGLOBIN 9.6 G/dL (12.0-18.0); O2 DEVICE,BLOOD GAS VENTILATOR (ROOM AIR); PEEP,BG 5 cm H2O; PO2, ARTERIAL BG 80.8 mmHg (75.0-83.0); SITE, BLOOD GAS RT RADIAL; SOURCE, BLOOD GAS ARTERIAL; TEMPERATURE, FAHRENHEIT, BG 97.1 FAHREN (96.0-98.6); VT, ABG 450 ml
[2019-06-16 12:00] VITALS: BP 133/63
[2019-06-16 12:38] LABS: GLUCOSE,POINT OF CARE 191 MG/DL (70-110)
[2019-06-16 13:45] LABS: ABG A-A DIFF O2 143.4 mmHg (10-20.0); ABG BASE EXCESS 0.8 mmol/L (-2.0-3.0); ABG CARBOXYHEMOGLOBIN 0.1 % (0.0-1.5); ABG HCO3 25.3 mmol/L (22.0-26.0); ABG METHEMOGLOBIN 0.3 % (0.0-1.5); ABG OXYGEN CONTENT 12.9 mL/dL (15.0-23.0); ABG OXYGEN SATURATION 92.6 % (95.0-98.0); ABG OXYHEMOGLOBIN 92.2 % (94.0-100.0); ABG PCO2 35 mmHg (35-45); ABG PH 7.464 (7.35-7.450); ABG TOTAL HEMOGLOBIN 9.9 G/dL (12.0-18.0); O2 DEVICE,BLOOD GAS VENTILATOR (ROOM AIR); PO2, ARTERIAL BG 65.8 mmHg (75.0-83.0); SITE, BLOOD GAS RT RADIAL; SOURCE, BLOOD GAS ARTERIAL; TEMPERATURE, FAHRENHEIT, BG 97.8 FAHREN (96.0-98.6); VENT MODE, BG SPONTANEOUS (ROOM AIR)
[2019-06-16 13:46] LABS: CPAP, BG 0 cm H2O; PRESSURE SUPPORT, BG 8 cm H2O; SPONTANEOUS VT, BG 500 ml
[2019-06-16 16:00] VITALS: BP 113/58
[2019-06-16 17:15] LABS: GLUCOSE,POINT OF CARE 160 MG/DL (70-110)
[2019-06-16 17:54] LABS: ANION GAP 4 mmol/L (8-16); CALCIUM, TOTAL 8.1 mg/dL (8.8-10.5); CARBON DIOXIDE 29 mmol/L (22-29); CHLORIDE 109 mmol/L (98-107); CREATININE 0.62 mg/dL (0.60-1.30); GLOMERULAR FILTR. RATE CALC > 60 mL/min (>60); GLUCOSE,RANDOM 176 mg/dL (70-110); PHOSPHORUS 3.7 mg/dL (2.5-4.9); POTASSIUM 4.5 mmol/L (3.5-5.1); SODIUM SERUM 142 mmol/L (136-145); UREA NITROGEN, BLOOD 26 mg/dL (7-18)
[2019-06-16 20:00] VITALS: BP 143/86
[2019-06-16] MEDS: AZITHROMYCIN 500 MG/NS 250 ML IV SCH (23:10)
[2019-06-17] VITALS (7 sets, daily range): BP systolic 115–157; BP diastolic 59–111
[2019-06-17] MEDS: ALBUTEROL SULFATE 2.5 MG/0.5 ML NEB SOLUTION NEB SCH ×4 (02:07→19:23)
[2019-06-17] MEDS: IPRATROPIUM BROMIDE 0.5 MG/2.5 ML NEB SOLUTION NEB SCH ×4 (02:07→19:23)
[2019-06-17] MEDS ORDERED: SODIUM CHLORIDE 0.9% 250 ML IV ONE (02:31)
[2019-06-17 02:39] LABS: GLUCOSE,POINT OF CARE 170 MG/DL (70-110)
[2019-06-17] MEDS: CefTRIAXone SODIUM 2 GM in DEXTROSE 5%-WATER 50 ML IV SCH ×2 (04:25→17:59)
[2019-06-17] MEDS: PROPOFOL 1000 MG/ISO-OSM 100 ML IV PRN (04:54)
[2019-06-17] MEDS: INSULIN LISPRO 100 UNITS/ML SQ PRN (04:55)
[2019-06-17 05:01] LABS: HEMATOCRIT 27.5 % (36-46); MEAN CORPUSCULAR HEMOGLOBIN 32.4 pg (26.0-34.0); MEAN CORPUSCULAR HGB CONC 32.5 G/dL (31.0-37.0); MEAN CORPUSCULAR VOLUME 100 fL (80-100); PLATELET COUNT (AUTO) 343 K/uL (150-450); RED BLOOD CELL COUNT(AUTO) 2.76 MIL/uL (4.00-5.20); RED CELL DISTRIBUTION WIDTH 13.7 % (11.5-14.5)
[2019-06-17 05:14] LABS: ANION GAP 5 mmol/L (8-16); CALCIUM, TOTAL 7.9 mg/dL (8.8-10.5); CARBON DIOXIDE 28 mmol/L (22-29); CHLORIDE 105 mmol/L (98-107); CREATININE 0.59 mg/dL (0.60-1.30); GLOMERULAR FILTR. RATE CALC > 60 mL/min (>60); GLUCOSE,RANDOM 176 mg/dL (70-110); PHOSPHORUS 3.5 mg/dL (2.5-4.9); POTASSIUM 4.4 mmol/L (3.5-5.1); SODIUM SERUM 138 mmol/L (136-145); UREA NITROGEN, BLOOD 23 mg/dL (7-18)
[2019-06-17 05:19] LABS: BAND NEUTROPHILS % (MANUAL) 8 % (0-5); LYMPHOCYTES % (MANUAL) 2 % (22-44); MONOCYTES % (MANUAL) 4 % (2-9); SEGMENTED NEUTROPHILS % 86 % (40-70)
[2019-06-17 05:20] LABS: PLATELET MORPHOLOGY COMMENT LARGE PLTS PRESENT
[2019-06-17] MEDS: MethylPREDNISolone SOD SUCC 40 MG/ML VIAL IVP SCH ×3 (05:41→18:08)
[2019-06-17] MEDS: FentaNYL CITRATE PF 500 MCG in DEXTROSE 5%-WATER 90 ML IV PRN (05:41)
[2019-06-17 06:21] LABS: GLUCOSE,POINT OF CARE 168 MG/DL (70-110)
[2019-06-17] MEDS: LISINOPRIL 5 MG TABLET PO SCH (09:00)
[2019-06-17] MEDS: BENZONATATE 100 MG CAPSULE PO SCH ×3 (09:00→21:00)
[2019-06-17] MEDS: GuaiFENesin SR 600 MG ER TABLET PO SCH ×2 (09:00→21:00)
[2019-06-17] MEDS: CARVEDILOL 3.125 MG TABLET PO SCH ×2 (09:00→21:00)
[2019-06-17] MEDS: DOCUSATE SODIUM 100 MG CAPSULE PO SCH ×2 (09:00→21:00)
[2019-06-17] MEDS: PANTOPRAZOLE SODIUM 40 MG/VIAL IVP SCH ×2 (10:11→20:31)
[2019-06-17] MEDS: FUROSEMIDE 20 MG/2 ML VIAL IVP SCH (11:15)
[2019-06-17 11:24] LABS: ABG BASE EXCESS 1.7 mmol/L (-2.0-3.0); ABG CARBOXYHEMOGLOBIN 0.3 % (0.0-1.5); ABG HCO3 25.8 mmol/L (22.0-26.0); ABG METHEMOGLOBIN 0.3 % (0.0-1.5); ABG OXYGEN CONTENT 13.7 mL/dL (15.0-23.0); ABG OXYGEN SATURATION 94.6 % (95.0-98.0); ABG PCO2 40 mmHg (35-45); ABG PH 7.435 (7.35-7.450); ABG TOTAL HEMOGLOBIN 10.3 G/dL (12.0-18.0); PO2, ARTERIAL BG 73.1 mmHg (75.0-83.0); SOURCE, BLOOD GAS ARTERIAL; TEMPERATURE, FAHRENHEIT, BG 96.3 FAHREN (96.0-98.6)
[2019-06-17] MEDS: IPRATROPIUM BROMIDE 0.5 MG/2.5 ML NEB SOLUTION NEB PRN ×2 (12:03→15:07)
[2019-06-17] MEDS: ALBUTEROL SULFATE 2.5 MG/0.5 ML NEB SOLUTION NEB PRN ×2 (12:03→15:07)
[2019-06-17 12:29] LABS: SITE, BLOOD GAS LFT RADIAL
[2019-06-17 12:30] LABS: O2 DEVICE,BLOOD GAS VENTILATOR (ROOM AIR); VENT MODE, BG CPAP (ROOM AIR)
[2019-06-17 12:31] LABS: SPONTANEOUS VT, BG 399 ml
[2019-06-17] MEDS: MORPHINE SULFATE 2 MG/ML SYRINGE IVP PRN (20:24)
[2019-06-18] VITALS (9 sets, daily range): BP systolic 116–153; BP diastolic 50–76
[2019-06-18] MEDS: MethylPREDNISolone SOD SUCC 40 MG/ML VIAL IVP SCH ×5 (00:01→20:53)
[2019-06-18] MEDS: MORPHINE SULFATE 2 MG/ML SYRINGE IVP PRN ×3 (00:25→14:14)
[2019-06-18] MEDS: ALBUTEROL SULFATE 2.5 MG/0.5 ML NEB SOLUTION NEB SCH ×4 (01:07→20:12)
[2019-06-18] MEDS: IPRATROPIUM BROMIDE 0.5 MG/2.5 ML NEB SOLUTION NEB SCH ×4 (01:07→20:12)
[2019-06-18] MEDS: CefTRIAXone SODIUM 2 GM in DEXTROSE 5%-WATER 50 ML IV SCH ×2 (05:05→16:57)
[2019-06-18 05:09] LABS: BASOPHILS % (AUTO) 0.3 % (0.0-2.0); EOSINOPHILS % (AUTO) 0.5 % (1.0-6.0); HEMATOCRIT 30.6 % (36-46); LYMPHOCYTES # (AUTO) 1.1 K/uL (1.0-4.8); LYMPHOCYTES % (AUTO) 5.2 % (22.0-44.0); MEAN CORPUSCULAR HEMOGLOBIN 32.1 pg (26.0-34.0); MEAN CORPUSCULAR HGB CONC 32.7 G/dL (31.0-37.0); MEAN CORPUSCULAR VOLUME 98 fL (80-100); MONOCYTES # (AUTO) 0.5 K/uL (0.1-1.0); MONOCYTES % (AUTO) 2.3 % (2.0-9.0); NEUTROPHILS # (AUTO) 20.1 K/uL (1.8-7.7); PLATELET COUNT (AUTO) 447 K/uL (150-450); RED BLOOD CELL COUNT(AUTO) 3.11 MIL/uL (4.00-5.20); RED CELL DISTRIBUTION WIDTH 13.5 % (11.5-14.5)
[2019-06-18 05:12] LABS: NEUTROPHILS % (AUTO) 91.7 % (40.0-70.0)
[2019-06-18 05:23] LABS: ALANINE AMINOTRANSFERASE 77 U/L (12-78); ALBUMIN 1.6 g/dL (3.4-5.0); ALKALINE PHOSPHATASE 95 U/L (46-116); ANION GAP 7 mmol/L (8-16); ASPARTATE AMINOTRANSFERASE 64 U/L (15-37); BILIRUBIN,TOTAL 0.3 mg/dL (0.1-1.0); CALCIUM, TOTAL 8.2 mg/dL (8.8-10.5); CARBON DIOXIDE 28 mmol/L (22-29); CHLORIDE 108 mmol/L (98-107); GLOMERULAR FILTR. RATE CALC > 60 mL/min (>60); GLUCOSE,RANDOM 77 mg/dL (70-110); POTASSIUM 3.8 mmol/L (3.5-5.1); SODIUM SERUM 143 mmol/L (136-145); UREA NITROGEN, BLOOD 22 mg/dL (7-18)
[2019-06-18 05:35] LABS: PLATELET MORPHOLOGY COMMENT LARGE PLTS PRESENT
[2019-06-18 07:41] LABS: GLUCOSE,POINT OF CARE 69 MG/DL (70-110)
[2019-06-18 07:41] LABS: GLUCOSE,POINT OF CARE 74 MG/DL (70-110)
[2019-06-18 07:50] LABS: GLUCOSE,POINT OF CARE 90 MG/DL (70-110)
[2019-06-18] MEDS: BENZONATATE 100 MG CAPSULE PO SCH ×3 (09:00→20:53)
[2019-06-18] MEDS: CARVEDILOL 6.25 MG TABLET PO SCH ×2 (09:00→20:53)
[2019-06-18] MEDS: DOCUSATE SODIUM 100 MG CAPSULE PO SCH ×2 (09:00→20:54)
[2019-06-18] MEDS: GuaiFENesin SR 600 MG ER TABLET PO SCH ×2 (09:00→20:53)
[2019-06-18] MEDS ORDERED: LISINOPRIL 10 MG TABLET PO SCH (09:00)
[2019-06-18] MEDS ORDERED: DEXTROSE 5%-WATER 1,000 ML IV SCH (09:30)
[2019-06-18] MEDS: PANTOPRAZOLE SODIUM 40 MG/VIAL IVP SCH ×2 (09:33→21:40)
[2019-06-18] MEDS: FUROSEMIDE 20 MG/2 ML VIAL IVP SCH (09:33)
[2019-06-18 12:09] LABS: GLUCOSE,POINT OF CARE 114 MG/DL (70-110)
[2019-06-18] MEDS: MetroNIDAZOLE 500 MG/NACL 100 ML IV SCH ×2 (14:56→21:47)
[2019-06-18 18:20] LABS: GLUCOSE,POINT OF CARE 134 MG/DL (70-110)
[2019-06-18] MEDS ORDERED: SODIUM CHLORIDE 0.9% 250 ML IV ONE (21:46)
[2019-06-19 00:40] LABS: GLUCOMETER DEV NAME(LOC) 5N.1; GLUCOSE,POINT OF CARE 125 MG/DL (70-110)
[2019-06-19] MEDS: ZOLPIDEM TARTRATE 5 MG TABLET PO PRN (01:12)
[2019-06-19] MEDS: IPRATROPIUM BROMIDE 0.5 MG/2.5 ML NEB SOLUTION NEB SCH ×3 (02:31→14:42)
[2019-06-19] MEDS: ALBUTEROL SULFATE 2.5 MG/0.5 ML NEB SOLUTION NEB SCH ×3 (02:32→14:42)
[2019-06-19 04:22] VITALS: BP 139/75
[2019-06-19] MEDS: CefTRIAXone SODIUM 2 GM in DEXTROSE 5%-WATER 50 ML IV SCH (04:28)
[2019-06-19] MEDS: MetroNIDAZOLE 500 MG/NACL 100 ML IV SCH ×2 (05:12→14:49)
[2019-06-19 05:39] LABS: GLUCOMETER DEV NAME(LOC) 5N.1; GLUCOSE,POINT OF CARE 96 MG/DL (70-110)
[2019-06-19 07:46] VITALS: BP 129/69
[2019-06-19 08:34] LABS: BASOPHILS % (AUTO) 0.2 % (0.0-2.0); EOSINOPHILS % (AUTO) 0.2 % (1.0-6.0); HEMATOCRIT 30.9 % (36-46); HEMOGLOBIN 10.3 g/dL (12.0-16.0); LYMPHOCYTES # (AUTO) 1.2 K/uL (1.0-4.8); LYMPHOCYTES % (AUTO) 7.2 % (22.0-44.0); MEAN CORPUSCULAR HEMOGLOBIN 32.7 pg (26.0-34.0); MEAN CORPUSCULAR HGB CONC 33.4 G/dL (31.0-37.0); MEAN CORPUSCULAR VOLUME 98 fL (80-100); MONOCYTES # (AUTO) 0.6 K/uL (0.1-1.0); MONOCYTES % (AUTO) 3.7 % (2.0-9.0); NEUTROPHILS # (AUTO) 14.9 K/uL (1.8-7.7); PLATELET COUNT (AUTO) 442 K/uL (150-450); RED BLOOD CELL COUNT(AUTO) 3.17 MIL/uL (4.00-5.20); RED CELL DISTRIBUTION WIDTH 13.9 % (11.5-14.5)
[2019-06-19 08:37] LABS: NEUTROPHILS % (AUTO) 88.7 % (40.0-70.0)
[2019-06-19 08:38] LABS: PLATELET MORPHOLOGY COMMENT LARGE PLTS PRESENT
[2019-06-19 08:53] LABS: ALANINE AMINOTRANSFERASE 71 U/L (12-78); ALBUMIN 1.6 g/dL (3.4-5.0); ALKALINE PHOSPHATASE 96 U/L (46-116); ANION GAP 4 mmol/L (8-16); ASPARTATE AMINOTRANSFERASE 51 U/L (15-37); BILIRUBIN,TOTAL 0.3 mg/dL (0.1-1.0); CALCIUM, TOTAL 8.4 mg/dL (8.8-10.5); CARBON DIOXIDE 29 mmol/L (22-29); CHLORIDE 105 mmol/L (98-107); CREATININE 0.58 mg/dL (0.60-1.30); GLOMERULAR FILTR. RATE CALC > 60 mL/min (>60); GLUCOSE,RANDOM 85 mg/dL (70-110); POTASSIUM 4.6 mmol/L (3.5-5.1); SODIUM SERUM 138 mmol/L (136-145); TOTAL PROTEIN, SERUM 5.3 g/dL (6.4-8.2); UREA NITROGEN, BLOOD 22 mg/dL (7-18)
[2019-06-19] MEDS ORDERED: LISINOPRIL 20 MG TABLET PO SCH (09:00)
[2019-06-19] MEDS ORDERED: MULTIVITAMINS WITH MINERALS, THERAPEUTIC TABLET PO ONE (09:00)
[2019-06-19] MEDS: PANTOPRAZOLE SODIUM 40 MG/VIAL IVP SCH (09:45)
[2019-06-19] MEDS: DOCUSATE SODIUM 100 MG CAPSULE PO SCH (09:46)
[2019-06-19] MEDS: CARVEDILOL 6.25 MG TABLET PO SCH (09:46)
[2019-06-19] MEDS: GuaiFENesin SR 600 MG ER TABLET PO SCH (09:47)
[2019-06-19] MEDS: BENZONATATE 100 MG CAPSULE PO SCH (09:47)
[2019-06-19] MEDS: MethylPREDNISolone SOD SUCC 40 MG/ML VIAL IVP SCH (09:49)
[2019-06-19] MEDS: FUROSEMIDE 20 MG/2 ML VIAL IVP SCH (09:49)
[2019-06-19 11:13] LABS: C.DIFF GDH ANTIGEN, Stool Negative (Negative); C.DIFF TOXINS A&B, Stool Negative (Negative)
[2019-06-19 11:18] VITALS: BP 109/59
[2019-06-19 11:40] LABS: PROTEIN C FUNCTIONAL(ACTIVITY) 137 % (73-180)
[2019-06-19 12:19] LABS: PROTHROMBIN TIME 10.6 SEC (9.4-11.6)
[2019-06-19 12:43] LABS: GLUCOMETER DEV NAME(LOC) 5N.1; GLUCOSE,POINT OF CARE 103 MG/DL (70-110)
[2019-06-19] MEDS: ACETAMINOPHEN 325 MG TABLET PO PRN (15:27)
[2019-06-21 16:37] LABS: PROTEIN S FUNCTIONAL ACTIVITY 90 % (63-140)
== END 2019-06-19 16:05 | disposition short-term general hospital (02) | DRG 870 ==
LOC: EMS 12:59 → ICU 21:00 → 5N 06-18 18:15
PROVIDERS: ADMIT Internal Medicine; ATTEND Internal Medicine
PROC: 5A1955Z Respiratory Ventilation, Greater than 96 Consecutive Hours (ICD-10-PCS; principal; 2019-06-07)
PROC: 0BH17EZ Insertion of Endotracheal Airway into Trachea, Via Natural or Artificial Opening (ICD-10-PCS; 2019-06-07)
PROC: 5A09357 Assistance with Respiratory Ventilation, Less than 24 Consecutive Hours, Continuous Positive Airway Pressure (ICD-10-PCS; 2019-06-07)
DX: A40.3 Sepsis due to Streptococcus pneumoniae (principal); J96.01 Acute respiratory failure with hypoxia; R65.21 Severe sepsis with septic shock; J96.02 Acute respiratory failure with hypercapnia; K72.00 Acute and subacute hepatic failure without coma; J15.4 Pneumonia due to other streptococci; I50.43 Acute on chronic combined systolic (congestive) and diastolic (congestive) heart failure; J44.1 Chronic obstructive pulmonary disease with (acute) exacerbation; J44.0 Chronic obstructive pulmonary disease with (acute) lower respiratory infection; E87.0 Hyperosmolality and hypernatremia; I96 Gangrene, not elsewhere classified; E87.2 Acidosis; I42.9 Cardiomyopathy, unspecified; N17.9 Acute kidney failure, unspecified; E87.6 Hypokalemia; D69.6 Thrombocytopenia, unspecified; K70.9 Alcoholic liver disease, unspecified; D64.9 Anemia, unspecified; I77.6 Arteritis, unspecified; K76.0 Fatty (change of) liver, not elsewhere classified; D69.2 Other nonthrombocytopenic purpura; Z72.89 Other problems related to lifestyle; Z87.891 Personal history of nicotine dependence
CPT/HCPCS: 36245; 36569; 36600; 71275; 74176; 76770; 76937; 82570; 82595; 82805; 83010; 83605; 83615; 83735; 84100; 84132; 84145; 84156; 84295; 84300; 84439; 84443; 85300; 85301; 85302; 85303; 85305; 85306; 85379; 85384; 85397; 85651; 86140; 86160; 86704; 86803; 87040; 87070; 87081; 87205; 87324; 87340; 87449; 87804; 92526; 92610; 93005; 93306; 93970; 94002; 94003; 94640; 94644; 94799; 96365; 96366; 96368; 97162; 99291; C9113; G0378; J0456; J0696; J1644; J1940; J2270; J2370; J2543; J2704; J2920; J2930; J3010; J3370; J3411; J3475; J3480; J3490; J7030; J7040; J7050; J7060